=== PATIENT | female | born 1990 | race Caucasian/White ===

== ENCOUNTER 2016-11-13 19:09 | Emergency (ER) | payer SELFPAY ==
[~2016-11-13] VITALS: Ht 157.5 cm; Wt 59.0 kg
[~2016-11-13 19:09] MED LIST: DIPHENHYDRAMINE 50 MG INJ ONE; HALOPERIDOL 5 MG INJ ONE; LORAZEPAM 2 MG INJ ONE
[2016-11-13 19:16] VITALS: Ht 157.5 cm; Wt 59.0 kg
[2016-11-13] MEDS ORDERED: SOD CHLORIDE 0.9% 1,000 ML IV STA (19:17)
[2016-11-13] MEDS ORDERED: HALOPERIDOL 5 MG INJ IM STA (19:17)
[2016-11-13] MEDS ORDERED: LORAZEPAM 2 MG INJ IM ONE (19:30)
[2016-11-13 20:20] LABS: PARTIAL THROMBOPLASTIN TIME 26.1 Sec (25.0-35.0); PROTIME 13.2 Sec (12.2-14.2)
[2016-11-13 20:23] LABS: ALBUMIN 4.7 g/dl (3.3-4.9); CHLORIDE 104 mmol/L (97-110)
[2016-11-13 20:24] LABS: POTASSIUM 3.4 mmol/L (3.5-5.1); SODIUM 146 mmol/L (135-144)
[2016-11-13 20:26] LABS: ALANINE AMINOTRANSFERASE 18 IU/L (13-69); ALBUMIN/GLOBULIN RATIO 1.46; ALKALINE PHOSPHATASE 64 IU/L (42-121); ANION GAP 21 (8-16); ASPARTATE AMINO TRANSFERASE 27 IU/L (15-46); BILIRUBIN,INDIRECT 0.4 mg/dl (0-1.1); BILIRUBIN,TOTAL 0.4 mg/dl (0.2-1.3); BLOOD UREA NITROGEN 9 mg/dl (7-20); CARBON DIOXIDE 24 mmol/L (21-31); CREATININE 0.72 mg/dl (0.44-1.00); TOTAL PROTEIN 7.9 g/dl (6.1-8.1)
[2016-11-13 20:27] LABS: CALCIUM 9.7 mg/dl (8.4-10.2); ETHANOL < 10.0 mg/dl; GLUCOSE 114 mg/dl (70-220); SALICYLATE < 1.0 mg/dl (5.0-30.0)
[2016-11-13 20:28] LABS: ACETAMINOPHEN < 10.0 ug/ml (10.0-30.0)
[2016-11-13 20:29] LABS: BASOPHILS % 0.2 % (0.0-2.0); HEMATOCRIT 40.6 % (37.0-47.0); HEMOGLOBIN 14.3 g/dl (12.0-16.0); LYMPHOCYTES # 1.7 10^3/ul (0.8-2.9); LYMPHOCYTES % 15.3 % (15.0-51.0); MEAN CORPUSCULAR HEMOGLOBIN 29.9 pg (29.0-33.0); MEAN CORPUSCULAR HGB CONC 35.3 g/dl (32.0-37.0); MEAN CORPUSCULAR VOLUME 84.8 fl (82.0-101.0); MEAN PLATELET VOLUME 9.5 fl (7.4-10.4); MONOCYTE # 0.5 10^3/ul (0.3-0.9); MONOCYTES % 4.8 % (0.0-11.0); NEUTROPHIL # 8.7 10^3/ul (1.6-7.5); NEUTROPHILS % 79.7 % (39.0-77.0); PLATELET COUNT 211 10^3/UL (140-440); RED BLOOD COUNT 4.78 10^6/ul (4.20-5.40); RED CELL DISTRIBUTION WIDTH 13.3 % (11.5-14.5); UNCORRECTED WBC 10.9 10^3/ul (4.8-10.8); WHITE BLOOD COUNT 10.9 10^3/ul (4.8-10.8)
[2016-11-13 20:37] LABS: CONDITION 1
[2016-11-13 20:56] LABS: ADD UMIC NO; URINE BILIRUBIN (Dip) NEGATIVE (NEGATIVE); URINE BLOOD (Dip) NEGATIVE (NEGATIVE); URINE COLOR LT. YELLOW (YELLOW); URINE GLUCOSE (Dip) >=1000 % (NEGATIVE); URINE KETONES (Dip) NEGATIVE (NEGATIVE); URINE LEUKOCYTE ESTERASE (Dip) NEGATIVE (NEGATIVE); URINE NITRITE (Dip) NEGATIVE (NEGATIVE); URINE TOTAL PROTEIN (Dip) NEGATIVE (NEGATIVE); URINE UROBILINOGEN (Dip) 0.2 E.U./dL (0.1-1.0)
--- NOTE | 2016-11-13 21:12 | RADRPT ---
PROCEDURE: CT Head without contrast. CLINICAL INDICATION: Altered level of consciousness TECHNIQUE: The study was performed utilizing a GE 64-slice multidetector CT scanner. Direct spiral axial CT images of the brain were obtained from the vertex to the skull base without contrast. The CTDI vol is 44.33 mGy and the DLP is 630.2 mGy-cm. The images were reviewed on a PACS workstation. COMPARISON: No prior studies are available for comparison. FINDINGS: The ventricles and cortical sulci are within normal limits. The hargrove-white matter differentiation i s maintained. No intra or extra-axial fluid collection or mass effect or shift in the midline struc tures is seen. The visualized paranasal sinuses, mastoid air cells, orbits, and calvarium are unrem arkable. IMPRESSION: Unremarkable CT of the head without contrast. RPTAT: HPNM Physician Tara Date Time Electronically viewed and signed by Physician Tara on 11/13/2016 21:12 /
[2016-11-13 21:18] LABS: BARBITURATES Negative (NEGATIVE); BENZODIAZEPINES Negative (NEGATIVE)
[2016-11-13 21:20] LABS: CANNABINOIDS Negative (NEGATIVE); COCAINE Negative (NEGATIVE); OPIATES Negative (NEGATIVE)
--- NOTE | 2016-11-13 21:56 | ERD ---
ER Documentation Chief Complaint Date/Time DATE: 11/13/16 TIME: 21:49 Chief Complaint bib friends s/p running in traffic, screaming, pos drug use, pos hx psych- HPI This is a 26-year-old female presents to the emergency department brought in by 2 friends after she was found running around in traffic, screaming and the patient denies any illicit drug use. The patient states she has had no recent remote trauma. She denies any suicidal homicidal thoughts or ideations. She states she is feeling very anxious but has no history of anxiety. Her friends became very concerned as they stated she was screaming uncontrollably and therefore they brought her to the emergency department to be further evaluated. The friend stated they had not been with the patient throughout the day and ran into her on the street. ROS All systems reviewed and are negative except as per history of present illness. Allergies Allergies: Coded Allergies: Unknown: Unable to obtain (Unverified , 11/13/16) Physical Exam Vitals Vital Signs Date Time Temp Pulse Resp B/P Pulse Ox O2 Delivery O2 Flow Rate FiO2 11/13/16 19:16 97.8 102 22 151/96 99 Physical Exam Constitutional:Well-developed. Well-nourished. HEENT:Normocephalic. Atraumatic.Pupils were 4 mm equal round reactive to light. Moist mucous membranes.No tonsillar exudates. No nasoseptal hematoma. No hemotympanum. Neck: No nuchal rigidity. No lymphadenopathy. No posterior cervical spine tenderness or step-offs. Respiratory: Not using accessory muscles of respiration.Lungs were clear to auscultation bilaterally. No rhonchi. No rales. No wheezing. Cardiovascular: Regular rate regular rhythm.No murmurs. No rubs were appreciated.S1, S2 normal. Distal pulses are palpable 2+ bilaterally. GI: Abdomen was soft. Nontender. Non Distended. No pulsatile abdominal masses or bruits. No rebound. No guarding. Bowel sounds were present and normal. Muscle skeletal: Full range of motion of both the upper and lower extremities bilaterally.Normal muscle tone.No assymetrical calf tenderness or swelling. Skin: No petechia, no purpura. No lesions on the palms or the soles of the feet. No maculopapular rash. NEURO: The patient was alert and awake but was screaming and running around the room. Result Diagram: 11/13/16194411/13/161944 Results 24 hrs Laboratory Tests Test 11/13/16 19:45 11/13/16 20:00 Acetaminophen Level < 10.0ug/ml Activated Partial Thromboplast Time 26.1Sec Alanine Aminotransferase (ALT/SGPT) 18IU/L Albumin 4.7g/dl Albumin/Globulin Ratio 1.46 Alkaline Phosphatase 64IU/L Anion Gap 21 Aspartate Amino Transf (AST/SGOT) 27IU/L Basophils # 0.010^3/ul Basophils % 0.2% Blood Urea Nitrogen 9mg/dl Calcium Level 9.7mg/dl Carbon Dioxide Level 24mmol/L Chloride Level 104mmol/L Creatinine 0.72mg/dl Direct Bilirubin 0.00mg/dl Eosinophils # 0.010^3/ul Eosinophils % 0.0% Ethyl Alcohol Level < 10.0mg/dl Globulin 3.20g/dl Glucose Level 114mg/dl Hematocrit 40.6% Hemoglobin 14.3g/dl INR International Normalized Ratio 1.00 Indirect Bilirubin 0.4mg/dl Lymphocytes # 1.710^3/ul Lymphocytes % 15.3% Mean Corpuscular Hemoglobin 29.9pg Mean Corpuscular Hemoglobin Concent 35.3g/dl Mean Corpuscular Volume 84.8fl Mean Platelet Volume 9.5fl Monocytes # 0.510^3/ul Monocytes % 4.8% Neutrophils # 8.710^3/ul Neutrophils % 79.7% Nucleated Red Blood Cells # 0.010^3/ul Nucleated Red Blood Cells % 0.0/100WBC Platelet Count 47369^3/UL Potassium Level 3.4mmol/L Prothrombin Time 13.2Sec Prothrombin Time Ratio 1.0 Red Blood Count 4.7810^6/ul Red Cell Distribution Width 13.3% Salicylates Level < 1.0mg/dl Serum HCG, Qualitative NEGATIVE Sodium Level 146mmol/L Total Bilirubin 0.4mg/dl Total Protein 7.9g/dl White Blood Count 10.910^3/ul Urine Amphetamines Screen Negative Urine Barbiturates Negative Urine Benzodiazepines Screen Negative Urine Bilirubin NEGATIVE Urine Cannabinoids Negative Urine Clarity CLEAR Urine Cocaine Screen Negative Urine Color LT. YELLOW Urine Glucose >=1000% Urine Hemoglobin NEGATIVE Urine Ketones NEGATIVE Urine Leukocyte Esterase NEGATIVE Urine Nitrite NEGATIVE Urine Opiates Screen Negative Urine Specific Homer >=1.030 Urine Total Protein NEGATIVE Urine Urobilinogen 0.2 E.U./dL Urine pH 5.0 Current Medications Medications (Trade) Dose Ordered Sig/Donovan Route PRN Reason Start Time Stop Time Status Last Admin Dose Admin Sodium Chloride (NS) 1,000 ml @ 1,000 mls/hr Q1H STAT IV 11/13/16 19:17 11/13/16 20:16 DC 11/13/16 19:49 Haloperidol (Haldol) 5 mg ONCE STAT IM 11/13/16 19:17 11/13/16 19:20 DC 11/13/16 19:15 Lorazepam (Ativan) 1 mg ONCE ONCE IM 11/13/16 19:30 11/13/16 19:31 DC 11/13/16 19:15 Procedures/MDM The patient presented to the emergency department with an acute and persistent change in their mental status. The differential diagnosis is diverse however reversible causes such as hypoglycemia, opiate overdose, thiamine deficiency were immediately considered. The patient was placed on a youth nutritional monitor, continuous pulse oximetry and IV access was established. The patients airway was secure however hypoxic events such as anemia, shock, or severe pulmonary disease were all considered as etiologies in this patients presentation. Circulation assessed with good cap refill and did not require fluids or pressure support. Finger stick for rapid glucose determined to be normal. The patient did become severely agitated during medical assessment. Reassurance and verbal de-escalation were unsuccessful in calming the patient down. The agitation was impeding medical evaluation and treatment, with potential for the patient to harm themselves or others; therefore, pharmacological sedation was required. Patient received IM Ativan and Haldol and Benadryl. Observation Note: Time: 5 hours Family Hx: No Hypertension Evaluation: Multiple exams showed improving symptoms and no evidence of suicidal thoughts and ideations. Her urine drug screen was negative. The patient was now ambulatory and had no auditory tactile or visual hallucinations. Patient did present with changes in her mental status and acute psychosis however the patient did not appear to be a threat to herself or others upon reevaluation after observation. The patient was discharged home in fair condition. They were instructed to return to the emergency department at any time if there was any worsening of their condition. The patient stated they would follow up with their PCP in the next 24-48 hours to initiate a suitable medication regimen under the care of their PCP as well as to allow their PCP to monitor any drug reactions. The patient was discharged home with prescriptions after they gave informed consent to the new medication. They were also fully informed by myself on the adverse effects and adverse drug interactions in order to provide adequate safeguards to prevent possible adverse reactions to medications. Departure Diagnosis: Primary Impression: Acute psychosis Condition: ELISABET Alston Nov 13, 2016 21:56
[2016-11-13 22:21] VITALS: BP 105/70; PULSE 88; RESP 18
== END 2016-11-14 00:12 | disposition home or self-care (01) ==
LOC: E/R 19:09 → EDBD 19:09 → E/R 11-14 00:12
DX: F23 Brief psychotic disorder (principal); R40.2252 Coma scale, best verbal response, oriented, at arrival to emergency department; R40.4 Transient alteration of awareness; R40.2362 Coma scale, best motor response, obeys commands, at arrival to emergency department; R40.2142 Coma scale, eyes open, spontaneous, at arrival to emergency department
CPT/HCPCS: 70450; 80053; 80306; 80307; 81003; 84703; 85025; 85610; 85730; J1200; J1630; J2060; J7030; 96372